=== PATIENT | female | born 1980 | race Two or more races ===

== ENCOUNTER 2017-01-18 08:31 | Emergency (ER) | payer MEDICARE ==
[2017-01-18] MEDS ORDERED: OXYCODONE-ACETAMINOPHEN 5-325 MG TABLET PO ONE (09:41)
[2017-01-18] MEDS ORDERED: ONDANSETRON 4 MG TAB.RAPDIS SL ONE (09:41)
--- NOTE | 2017-01-18 09:41 | ER Document Report ---
ED Medical Screen (RME) - General Chief Complaint: Abdominal Pain Stated Complaint: SHARP PAIN ON RIGHT SIDE OF TORSO Time Seen by Provider: 01/18/17 09:37 Mode of Arrival: Ambulatory Information source: Patient TRAVEL OUTSIDE OF THE [place] IN LAST 30 DAYS: No - HPI Patient complains to provider of: Right-sided chest pain Onset: Yesterday Onset/Duration: Sudden Quality of pain: Sharp, Stabbing Severity: Moderate Associated Symptoms: Hurts to breath, Nausea Exacerbated by: Deep breathing Relieved by: Denies Similar symptoms previously: No Recently seen / treated by doctor: No Notes: 01/18/17 09:41 It is a 36-year-old female with a reported history of CVA and AL who presents to the emergency room complaining of right-sided chest pain that started yesterday evening, starts near the right upper quadrant of the abdomen and radiates up into the chest, it hurts to take a deep breath, it is associated with nausea and shortness of breath - Related Data Allergies/Adverse Reactions: No Known Allergies Allergy (Verified 01/18/17 08:41) Past Medical History - Past Medical History Cardiac Medical History: Reports: Hx Heart Attack, Hx Hypertension - PT ON BLOOD PRESSURE MEDS Pulmonary Medical History: Reports: Hx Asthma Neurological Medical History: Reports: Hx Cerebrovascular Accident Renal/ Medical History: Denies: Hx Peritoneal Dialysis - Immunizations Hx Diphtheria, Pertussis, Tetanus Vaccination: Yes Physical Exam - Vital signs Vitals: Temp Pulse Resp BP Pulse Ox 98.3 F 72 18 124/73 99 01/18/17 08:42 01/18/17 08:42 01/18/17 08:42 01/18/17 08:42 01/18/17 08:42 Course - Vital Signs Vital signs: Temp Pulse Resp BP Pulse Ox 98.3 F 72 18 124/73 99 01/18/17 08:42 01/18/17 08:42 01/18/17 08:42 01/18/17 08:42 01/18/17 08:42
--- NOTE | 2017-01-18 10:45 | RADIOLOGY REPORT (SQ) ---
EXAM DESCRIPTION: CHEST PA/LAT COMPLETED DATE/TIME: 01/18/2017 10:02 am REASON FOR STUDY: right sided cp COMPARISON: September 2015 EXAM PARAMETERS: NUMBER OF VIEWS: two views TECHNIQUE: Digital Frontal and Lateral radiographic views of the chest acquired. RADIATION DOSE: NA LIMITATIONS: none FINDINGS: LUNGS AND PLEURA: No opacities, masses or pneumothorax. No pleural effusion. MEDIASTINUM AND HILAR STRUCTURES: No masses or contour abnormalities. HEART AND VASCULAR STRUCTURES: Heart normal size. No evidence for failure. BONES: No acute findings. HARDWARE: None in the chest. OTHER: No other significant finding. IMPRESSION: NO SIGNIFICANT RADIOGRAPHIC FINDING IN THE CHEST. TECHNICAL DOCUMENTATION: JOB ID: [id number] [employer] All Rights Reserved
[2017-01-18 10:49] LABS: ABSOLUTE EOSINOPHILS # (AUTO) 0.1 10^3/uL (0.0-0.6); ABSOLUTE LYMPHOCYTES (AUTO) 1.8 10^3/uL (0.5-4.7); ABSOLUTE MONOCYTES (AUTO) 0.5 10^3/uL (0.1-1.4); ABSOLUTE NEUT (AUTO) 4.7 10^3/uL (1.7-8.2); BASOPHILS % (AUTO) 0.7 % (0-2); HEMATOCRIT 46.2 % (36.0-47.0); HEMOGLOBIN 15.6 g/dL (12.0-15.5); HGB HCT DIFFERENCE 0.6; LYMPHOCYTES % (AUTO) 24.6 % (13-45); MEAN CORPUSCULAR HEMOGLOBIN 31.4 pg (27.0-33.4); MEAN CORPUSCULAR HGB CONC 33.9 g/dL (32.0-36.0); MEAN CORPUSCULAR VOLUME 93 fl (80-97); MONOCYTES % (AUTO) 7.1 % (3-13); RED BLOOD COUNT 4.98 10^6/uL (3.72-5.28); RED CELL DISTRIBUTION WIDTH 13.4 % (11.5-14.0); SEGMENTED NEUTROPHILS % (AUTO) 65.6 % (42-78); WHITE BLOOD COUNT 7.1 10^3/uL (4.0-10.5)
[2017-01-18 11:18] LABS: ALANINE AMINOTRANSFERASE 20 U/L (9-52); ALKALINE PHOSPHATASE 86 U/L (38-126); ANION GAP 11 (5-19); ASPARTATE AMINO TRANSFERASE 16 U/L (14-36); BILIRUBIN,DIRECT 0.4 mg/dL (0.0-0.4); BILIRUBIN,TOTAL 0.7 mg/dL (0.2-1.3); BLOOD UREA NITROGEN 14 mg/dL (7-20); CALCIUM 9.3 mg/dL (8.4-10.2); CARBON DIOXIDE 21 mmol/L (22-30); CHLORIDE 108 mmol/L (98-107); CREATINE KINASE 104 U/L (30-135); GLUCOSE 99 mg/dL (75-110); LIPASE 73.1 U/L (23-300); POTASSIUM 4.3 mmol/L (3.6-5.0); TOTAL PROTEIN 6.8 g/dL (6.3-8.2)
[2017-01-18 11:24] LABS: CREATINE KINASE MB 0.86 ng/mL (<4.55)
--- NOTE | 2017-01-18 11:30 | ER Document Report ---
ED General - General Chief Complaint: Abdominal Pain Stated Complaint: SHARP PAIN ON RIGHT SIDE OF TORSO Time Seen by Provider: 01/18/17 09:37 Mode of Arrival: Ambulatory Information source: Patient Notes: 36-year-old female history of CVA 2 [place] 1 presents with complaints of right flank pain and right upper abdominal pain. Patient notes pain started yesterday radiates up the side. Patient notes when this pain occurs she feels her heart racing and pounding. Patient denies any actual chest pain even though this has been documented. Patient notes it hurts when she moves around and when she takes a deep breath but that the pain is all limited to the right upper quadrant and flank. Patient denies any urinary complaints denies any fevers admits to nausea. Patient states this does not feel like a previous [place] TRAVEL OUTSIDE OF THE [place] IN LAST 30 DAYS: No - HPI Onset/Duration: Sudden Quality of pain: Sharp Severity: Mild Pain Level: 1 Associated symptoms: Nausea, Vomiting Exacerbated by: Movement, Deep breathing Relieved by: Denies Similar symptoms previously: No Recently seen / treated by doctor: No - Related Data Allergies/Adverse Reactions: No Known Allergies Allergy (Verified 01/18/17 08:41) Past Medical History - General Information source: Patient - Social History Smoking Status: Never Smoker Cigarette use (# per day): No Chew tobacco use (# tins/day): No Smoking Education Provided: No Family History: Reviewed & Not Pertinent Patient has suicidal ideation: No Patient has homicidal ideation: No - Past Medical History Cardiac Medical History: Reports: Hx Heart Attack, Hx Hypertension - PT ON BLOOD PRESSURE MEDS Pulmonary Medical History: Reports: Hx Asthma Neurological Medical History: Reports: Hx Cerebrovascular Accident Renal/ Medical History: Denies: Hx Kidney Stones, Hx Peritoneal Dialysis - Immunizations Hx Diphtheria, Pertussis, Tetanus Vaccination: Yes Review of Systems - Review of Systems Notes: PHYSICAL EXAMINATION: GENERAL: Well-appearing, well-nourished and in no acute distress. HEAD: Atraumatic, normocephalic. EYES: Pupils equal round and reactive to light, extraocular movements intact, conjunctiva are normal. ENT: Nares patent, oropharynx clear without exudates. Moist mucous membranes. NECK: Normal range of motion, supple without lymphadenopathy LUNGS: Breath sounds clear to auscultation bilaterally and equal. No wheezes rales or rhonchi. HEART: Regular rate and rhythm without murmurs ABDOMEN: Soft, tender in the right upper quadrant right CVA Female : deferred Musculoskeletal: Normal range of motion, no pitting or edema. No cyanosis. NEUROLOGICAL: Cranial nerves grossly intact. Normal speech, normal gait. Normal sensory, motor exams PSYCH: Normal mood, normal affect. SKIN: Warm, Dry, normal turgor, no rashes or lesions noted. Physical Exam - Vital signs Vitals: Temp Pulse Resp BP Pulse Ox 98.3 F 72 18 124/73 99 01/18/17 08:41 01/18/17 08:41 01/18/17 08:41 01/18/17 08:41 01/18/17 08:41 Course - Re-evaluation Re-evalutation: 01/18/17 11:29 This does not appear to be cardiac in nature at all, there is no lung involvement. The pain seems specific in the right flank and right upper quadrant. My concern is for kidney versus gallbladder however cardiac enzymes have been ordered given her history. 01/18/17 14:22 Ultrasound noted no significant abnormality, patient is in no distress. D- dimer was negative chest x-ray was normal cardiac enzymes were negative patient otherwise looks well is stable I will discharge home After performing a Medical Screening Examination, I estimate there is LOW risk for RUPTURED ESOPHAGUS, PNEUMOTHORAX, PULMONARY EMBOLISM, ACUTE CORONARY SYNDROME, OR THORACIC AORTIC DISSECTION, thus I consider the discharge disposition reasonable. I have reevaluated this patient multiple times and no significant life threatening changes are noted. The patient and I have discussed the diagnosis and risks, and we agree with discharging home with close follow-up. We also discussed returning to the Emergency Department immediately if new or worsening symptoms occur. We have discussed the symptoms which are most concerning (e.g., bloody sputum, worsening pain or shortness of breath) that necessitate immediate return. - Vital Signs Vital signs: Temp Pulse Resp BP Pulse Ox 98.3 F 72 18 124/73 99 01/18/17 08:42 01/18/17 08:42 01/18/17 08:42 01/18/17 08:42 01/18/17 08:42 - Laboratory Result Diagrams: 01/18/17 10:21 01/18/17 10:21 Laboratory results interpreted by me: 01/18/17 01/18/17 01/18/17 09:50 10:21 10:21 Hgb 15.6 H Chloride 108 H Carbon Dioxide 21 L Urine Protein 30 H Urine Ketones TRACE H - Diagnostic Test Radiology reviewed: Image reviewed, Reports reviewed - EKG Interpretation by Me EKG shows normal: Sinus rhythm, [place], Intervals, QRS Complexes Discharge - Discharge Clinical Impression: Right upper quadrant abdominal pain Condition: Stable Disposition: HOME, SELF-CARE Instructions: Abdominal Pain ([facility]), Chest Pain of Unclear Cause ([facility]) Additional Instructions: Follow up with your physician tomorrow for further care or return to the ED IMMEDIATELY if symptoms worsen or new concerns occur. If you cannot afford to follow up with your primary care physician a list of low cost clinics have been provided at the end of your discharge papers as well. Prescriptions: Oxycodone HCl/Acetaminophen [Percocet 5-325 mg Tablet] 1 tab PO ASDIR PRN #15 tab PRN Reason:
[2017-01-18 11:32] LABS: TROPONIN I < 0.012 ng/mL
[2017-01-18 11:38] LABS: APPEARANCE,URINE CLOUDY; BILIRUBIN,URINE NEGATIVE (NEGATIVE); GLUCOSE, URINE NEGATIVE (NEGATIVE); KETONES,URINE TRACE mg/dL (NEGATIVE); LEUKOCYTE ESTERASE,URINE NEGATIVE (NEGATIVE); NITRITE,URINE NEGATIVE (NEGATIVE); PROTEIN,URINE 30 mg/dL (NEGATIVE); URINE SPECIFIC GRAVITY 1.033; UROBILINOGEN,URINE NEGATIVE mg/dL (<2.0)
[2017-01-18] MEDS ORDERED: HYDROCODONE/ACETAMINOPHEN 5-325 MG TABLET PO ONE (13:05)
--- NOTE | 2017-01-18 14:09 | RADIOLOGY REPORT (SQ) ---
EXAM DESCRIPTION: U/S ABDOMEN LIMITED W/O DOP COMPLETED DATE/TIME: 01/18/2017 1:51 pm REASON FOR STUDY: ruq pain COMPARISON: None. TECHNIQUE: Dynamic and static grayscale images acquired of the abdomen and recorded on PACS. Additio nal selected color Doppler and spectral images recorded. LIMITATIONS: None. FINDINGS: PANCREAS: No masses. Visualized pancreatic duct normal caliber. LIVER: 15.8 cm. Normal echotexture. LIVER VASCULATURE: Normal directional flow of the main portal vein and hepatic veins. GALLBLADDER: No stones. Normal wall thickness. No pericholecystic fluid. ULTRASOUND-DETECTED GAMA'S SIGN: Negative. INTRAHEPATIC DUCTS AND COMMON DUCT: Common bile duct is normal at 4 mm. INFERIOR VENA CAVA: Normal flow. AORTA: No aneurysm. RIGHT KIDNEY: Normal size, 9.4 cm. Normal echogenicity. No masses. No calcifications. No hydrone phrosis. PERITONEAL AND RIGHT PLEURAL SPACE: No ascites or effusions. OTHER: No other significant findings. IMPRESSION: NORMAL RIGHT UPPER QUADRANT ULTRASOUND. TECHNICAL DOCUMENTATION: JOB ID: [id number] [employer]- All Rights Reserved
[2017-01-18 15:30] VITALS: BP 106/61
--- NOTE | 2017-01-18 20:33 | EKG REPORT ---
SEVERITY:- NORMAL ECG - SINUS RHYTHM : Confirmed by: Jone Yanes MD 18-Jan-2017 20:32:29
== END 2017-01-18 15:30 | disposition home or self-care (01) ==
LOC: ER 08:31
DX: R10.11 Right upper quadrant pain (principal)
CPT/HCPCS: 93005; 99284; 36415; 82553; 82550; 83690; 84703; 85025; 80053; 81001; 84484; 85379; 71020; 76705; 93010; A9270 ×3; S0119

== ENCOUNTER 2017-04-02 19:29 | Observation (INO) | payer MEDICARE ==
--- NOTE | 2017-04-02 20:14 | ER Document Report ---
ED Medical Screen (RME) - General Chief Complaint: Chest Pain Stated Complaint: CHEST PAIN Time Seen by Provider: 04/02/17 20:11 Notes: Patient states that approximately 1 hour before arrival she developed the sudden onset of right-sided pain and numbness in her right arm as well as chest heaviness. She states that in the past she has had a heart attack and 2 strokes. She states the strokes left her with some memory trouble as well as some depth perception problems. A friend who accompanies the patient to the emergency department says that she noticed that the patient's smile seem to be corrected but now seems to be better. TRAVEL OUTSIDE OF THE [place] IN LAST 30 DAYS: No - Related Data Allergies/Adverse Reactions: No Known Allergies Allergy (Verified 01/18/17 08:41) Past Medical History - Past Medical History Cardiac Medical History: Reports: Hx Heart Attack, Hx Hypertension - PT ON BLOOD PRESSURE MEDS Pulmonary Medical History: Reports: Hx Asthma Neurological Medical History: Reports: Hx Cerebrovascular Accident Renal/ Medical History: Denies: Hx Kidney Stones, Hx Peritoneal Dialysis - Immunizations Hx Diphtheria, Pertussis, Tetanus Vaccination: Yes Physical Exam - Vital signs Vitals: Temp Pulse Resp BP Pulse Ox 98.7 F 65 16 132/82 H 99 04/02/17 19:42 04/02/17 19:42 04/02/17 19:42 04/02/17 19:42 04/02/17 19:42 Course - Vital Signs Vital signs: Temp Pulse Resp BP Pulse Ox 98.7 F 65 16 132/82 H 99 04/02/17 19:42 04/02/17 19:42 04/02/17 19:42 04/02/17 19:42 04/02/17 19:42
--- NOTE | 2017-04-02 20:32 | RADIOLOGY REPORT (SQ) ---
EXAM DESCRIPTION: CT HEAD WITHOUT COMPLETED DATE/TIME: 04/02/2017 8:23 pm REASON FOR STUDY: right sided numbness COMPARISON: None. TECHNIQUE: Axial images acquired through the brain without intravenous contrast. Images reviewed wi th bone, brain and subdural windows. Images stored on PACS. All CT scanners at this facility use dose modulation, iterative reconstruction, and/or weight based d osing when appropriate to reduce radiation dose to as low as reasonably achievable (ALARA). [facility]: Dose Right [facility]: CareDose [facility]: Dose Right [facility]: Teradose 4D [facility]: [employer] RADIATION DOSE: Up-to-date CT equipment and radiation dose reduction techniques were employed. CTDIv ol: 64.6 mGy. DLP: 1163 mGy-cm. mGy. LIMITATIONS: None. FINDINGS: VENTRICLES: Prominent. CEREBRUM: No masses. No hemorrhage. No midline shift. Areas of low density in the white matter mos t likely due to chronic micro-vascular ischemic change. No evidence for acute infarction. CEREBELLUM: No masses. No hemorrhage. No alteration of density. No evidence for acute infarction. EXTRAAXIAL SPACES: Mild age-related involutional change. No fluid collections. No masses. ORBITS AND GLOBE: No intra- or extraconal masses. Normal contour of globe without masses. CALVARIUM: No fracture. PARANASAL SINUSES: No fluid or mucosal thickening. SOFT TISSUES: No mass or hematoma. OTHER: No other significant finding. IMPRESSION: MILD CHRONIC CHANGES OF ATROPHY AND MICROVASCULAR ISCHEMIA. NO ACUTE PROCESS. COMMENT: Pertinent positive or negative findings of the imaging study reported as a CRITICAL EXAM rex ASH MD at20:23 on 04/02/2017. Category of Critical Exam: Stroke protocol. TECHNICAL DOCUMENTATION: JOB ID: [id number] Quality ID # [id number]: Final reports with documentation of one or more dose reduction techniques (e.g., Au tomated exposure control, adjustment of the mA and/or kV according to patient size, use of iterative reconstruction technique) 2010 [employer]- All Rights Reserved
--- NOTE | 2017-04-02 20:33 | RADIOLOGY REPORT (SQ) ---
EXAM DESCRIPTION: CHEST SINGLE VIEW COMPLETED DATE/TIME: 04/02/2017 8:24 pm REASON FOR STUDY: right sided numbness COMPARISON: 01/18/2017 EXAM PARAMETERS: NUMBER OF VIEWS: One view. TECHNIQUE: Single frontal radiographic view of the chest acquired. RADIATION DOSE: NA LIMITATIONS: None. FINDINGS: LUNGS AND PLEURA: No opacities, masses or pneumothorax. No pleural effusion. MEDIASTINUM AND HILAR STRUCTURES: No masses. Contour normal. HEART AND VASCULAR STRUCTURES: Heart normal in size. Normal vasculature. BONES: No acute findings. HARDWARE: None in the chest. OTHER: No other significant finding. IMPRESSION: NO ACUTE RADIOGRAPHIC FINDING IN THE CHEST. TECHNICAL DOCUMENTATION: JOB ID: [id number]
--- NOTE | 2017-04-02 20:43 | ER Document Report ---
ED General - General Mode of Arrival: Ambulatory Information source: Patient TRAVEL OUTSIDE OF THE [place] IN LAST 30 DAYS: No <OPAL ODOM - Last Filed: 04/03/17 01:32> <CYNDEEMARISSAMICHELLE - Last Filed: 04/08/17 12:18> - General Chief Complaint: S/S of Possible Stroke Stated Complaint: CHEST PAIN Time Seen by Provider: 04/02/17 20:11 Notes: Patient is a 36 year old female presenting to the ED right sided numbness and pain in her chest. Patient's symptoms were onset about 1 hour prior to arrival. Patient states her pain is numb and heavy. Patient also has a headache that was onset at the same time. Patient denies any dyspnea or other symptoms. Patient has a history of cardiac arrest with CVA in 2006. Patient was flown to [facility] for this. Family state the patient has a slight crooked smile but it was more crooked at home; patient also had some hesitancy when speaking due to the previous stroke. Patient is able to ambulate without help. Patient was given 4 baby ASA at home prior to arrival. Patient denies any recent fall. Patient is not on any blood thinners. Patient does not have any known allergies. PCP: nasrin James's office perhaps [place]. (OPAL ODOM) - Related Data Allergies/Adverse Reactions: No Known Allergies Allergy (Verified 01/18/17 08:41) Past Medical History - General Information source: Patient, Relative - Social History Smoking Status: Current Every Day Smoker Chew tobacco use (# tins/day): No Frequency of alcohol use: Occasional Drug Abuse: None Family History: None Patient has suicidal ideation: No Patient has homicidal ideation: No - Past Medical History Cardiac Medical History: Reports: Hx Heart Attack, Hx Hypertension - PT ON BLOOD PRESSURE MEDS Pulmonary Medical History: Reports: Hx Asthma Neurological Medical History: Reports: Hx Cerebrovascular Accident Surgical Hx: Negative - Immunizations Hx Diphtheria, Pertussis, Tetanus Vaccination: Yes <OPAL ODOM - Last Filed: 04/03/17 01:32> Review of Systems - Review of Systems Constitutional: No symptoms reported EENT: No symptoms reported Cardiovascular: See HPI, Chest pain Respiratory: No symptoms reported Gastrointestinal: No symptoms reported Genitourinary: No symptoms reported Female Genitourinary: No symptoms reported Musculoskeletal: No symptoms reported Skin: No symptoms reported Hematologic/Lymphatic: No symptoms reported Neurological/Psychological: See HPI, Headaches, Numbness -: Yes All other systems reviewed and negative <OPAL ODOM - Last Filed: 04/03/17 01:32> Physical Exam - Vital signs Interpretation: Normal <OPAL ODOM - Last Filed: 04/03/17 01:32> <MICHELLE COTTER - Last Filed: 04/08/17 12:18> - Vital signs Vitals: Temp Pulse Resp BP Pulse Ox 98.7 F 65 16 132/82 H 99 04/02/17 19:42 04/02/17 19:42 04/02/17 19:42 04/02/17 19:42 04/02/17 19:42 - Notes Notes: GENERAL: Alert, interacts well. Mild distress. HEAD: Normocephalic, atraumatic. EYES: Appear normal. Pupils equal, round, and reactive to light. ENT: Moist mucus membranes, tongue midline. NECK: Full range of motion. Supple. Trachea midline. LUNGS: Clear to auscultation bilaterally, no wheezes, rales, or rhonchi. No respiratory distress. HEART: Regular rate and rhythm. No murmurs, gallops, or rubs. ABDOMEN: Soft, non-tender. Non-distended. Normal bowel sounds. EXTREMITIES: Moves all 4 extremities spontaneously. No edema. 2 out of 4 strength in the right upper extremity compared to the left upper extremity. Sensation intact. No lower extremity weakness. Normal reflexes throughout. NEUROLOGICAL: Alert and oriented x3. Normal speech. No focal neurological deficits. No obvious facial droop. GSC 15. PSYCH: Normal affect, normal mood. SKIN: Warm, dry, normal turgor. No rashes or lesions noted. (OPAL ODOM) Course - Laboratory Result Diagrams: 04/02/17 20:50 04/02/17 20:50 - Consults [facility] Time consulted: 21:00 Dr. Hewitt Time consulted: 21:33 Consulted provider: will see as inpatient <OPAL ODOM - Last Filed: 04/03/17 01:32> - Laboratory Result Diagrams: 04/02/17 20:50 04/03/17 03:31 <CYNDEEMICHELLE - Last Filed: 04/08/17 12:18> - Re-evaluation Re-evalutation: 04/02/17 20:43 Patient presents emergency department via the triage area and is immediately call the stroke protocol and sent to CT. Patient states about an hour prior to arrival she developed acute onset of mild headache right chest heaviness numbness in the right chest numbness in the right arm felt like she could not lift her right arm. Sister is at the bedside who is with her most of the time. She has a history of a massive CVA as well as OR in 2006 where she was life flighted to [facility]. As a result of that she never received any stents and is never had any known blockages or any stents placed and is not on Plavix. She has a local primary care physician and is supposed to take aspirin on a daily basis and that is according to the family her only medication. As a result of her previous CVAs in the past and she occasionally has some speech impediment some problems with depth perception but normally ambulates without assistive devices. There is no recent history of fall. Sister who was witnessed to this prior to arrival is 1 of our security officers. She said that she gave her 4 baby aspirin and brought her directly to the emergency department. On examination the patient's blood pressure is 132/82 she is awake alert with a GCS of 15. She has no obvious facial droop but has decreased sensation on the right side of her face compared to the left. She has 2 out of 4 strength in the right upper extremity compared to left lower extremity with no decreased sensation. The IV is being placed in the right hand and she can feel that appropriately. Heart lungs abdomen examined with no acute findings she has no lower extremity weakness reflexes are symmetrical throughout. 04/02/17 21:03 CT examination of the head does not show any acute pathology but rather chronic microvascular disease. Patient is reassessed at the bedside at this point she has a very subtle left-sided facial droop but 4 out of 4 strength in the right upper extremity is not complaining of headache shortness breath or chest pain. At this point I contacted [facility] in [place] to speak with the neurologist at 2102 and am waiting a callback. Initial NIH stroke scale of 2 now currently a 1. 04/02/17 21:[address] Evans neurology at [facility] that did not recommend transfer nor thrombolytics at this point because the only remaining deficit is a slight facial droop.. Discussed was with the family they do not want thrombolytics. The rest of her laboratory evaluation is back EKG chest x-ray cardiac enzymes are stable no electrolyte abnormalities. At this point patient will be to admitted to the hospital for further assessment and evaluation 04/02/17 21:50 I have spoken with Dr. Hewitt who agrees to admit the patient to IMCU observation. (MICHELLE COTTER) - Vital Signs Vital signs: Temp Pulse Resp BP Pulse Ox 97.8 F 72 12 111/59 L 98 04/04/17 09:23 04/04/17 09:23 04/04/17 09:23 04/04/17 09:23 04/04/17 09:23 - Laboratory Laboratory results interpreted by me: 04/02/17 20:50 Chloride 108 H Carbon Dioxide 21 L - EKG Interpretation by Me Additional EKG results interpreted by me: 04/02/17 20:46 EKG shows sinus rhythm at 73 bpm with no acute ST segment elevation or depression as compared to previous EKG from 01/18/2017 (MICHELLE COTTER) - Consults [facility] Transfer [facility] Reason for consultation: 04/02/17 21:00 Contacted [facility] to speak with a neurologist to discuss patient. They will call back. 04/02/17 21:[address] Evans who states the patient is not a candidate for TPA and does not need to be transferred at this time. (OPAL ODOM) Dr. Hewitt Reason for consultation: 04/02/17 21:[address] Hewitt for admission, he will call back. 04/02/17 21:[address] Hewitt; he will admit the patient. (OPAL ODOM) Critical Care Note - Critical Care Note Total time excluding time spent on procedures (mins): 55 <MICHELLE COTTER - Last Filed: 04/08/17 12:18> Discharge <OPAL ODOM - Last Filed: 04/03/17 01:32> - Discharge Admitting Provider: Hospitalist Unit Admitted: IMCU <MICHELLE COTTER - Last Filed: 04/08/17 12:18> - Discharge Clinical Impression: CVA (cerebral vascular accident) Qualifiers: CVA mechanism: unspecified Qualified Code(s): I63.9 - Cerebral infarction, unspecified Condition: Stable Disposition: ADMITTED INPATIENT Scribe Attestation: 04/02/17 21:51 I personally performed the services described in the documentation reviewed the documentation recorded by my scribe in my presence and it accurately and completely records my words and actions (MICHELLE COTTER) ED NIH Stroke Scale - NIH Stroke Scale When completed:: Protocol *: 1. NIH scale should be completed with appropriate accompanying assessment tools. *: 2. The NIH should reflect what the patient is capable of doing and should not be coached by the clinician. 1a. Level of Consciousness: 0=Alert;keenly responsive -: 1=Drowsy -: 2=Obtunded -: 3=Coma/unresponsive or reflex to noxious stimuli. 1a. Responses: 0 1b. Orientation Questions: a. What month is it? -: b. How old are you? -: 0=Answers both questions correctly. -: 1=Answers one question correctly or patient is intubated or has orotracheal trauma. -: 2=Answers neither question correctly. 1b. Responses: 1 1c. Response to commands: a. Open and close eyes? -: b. Want Ad Clerk and release hand? -: Credit is given despite weakness. Demonstration of task is permitted. Substitute command if hands cannot be used. -: 0=Performs both tasks correctly -: 1=Performs one task correctly -: 2=Performs neither task correctly 1c. Responses: 0 2. Gaze: Establish eye contact and instruct patient to "Follow my finger" -: 0=Normal -: 1=Partial gaze palsy. Gaze is abnormal in one or both eyes, but where forced deviation or total gaze paresis is not present. -: 2=Forced deviation or total gaze paresis. 2. Responses: 0 3. Visual Wilson: Sees fingers in all four quadrants. -: 0=No visual loss. -: 1=Partial hemianopsia. -: 2=Complete hemianopsia. -: 3=Bilateral hemianopsia (including Cortical blindness) 3. Responses: 0 4. Facial Movement: Instruct patient to: -: a. Show me your teeth -: b. Raise your eyebrows -: c. Close your eyes -: d. Smile -: 0=Normal symmetrical movement -: 1=Minor paralysis (flattened nasolabial fold, asymmetry on smiling). -: 2=Partial paralysis (total or near total paralysis of lower face). -: 3=Complete paralysis of upper and lower face 4. Responses: 1 5. Motor functions (left arm): Alternate sides and extend each arm with palms down (90 degrees if sitting or 45 degrees for supine). -: 0=No drift;limb holds for full 10 seconds. -: 1=Drift; limb holds but drifts down before full 10 seconds, but does not hit bed. -: 2=Some effort against gravity; limb cannot get to or maintain position. -: 3=No effort against gravity; limb falls. -: 4=No movement. -: UN=Amputation, joint fusion, explain in comments. 5. Responses (left arm): 0 5. Motor Functions (right arm): Alternate sides and extend each arm with palms down (90 degrees if sitting or 45 degrees for supine). -: 0=No drift;limb holds for full 10 seconds. -: 1=Drift; limb holds but drifts down before full 10 seconds, but does not hit bed. -: 2=Some effort against gravity; limb cannot get to or maintain position. -: 3=No effort against gravity; limb falls. -: 4=No movement. -: UN=Amputation, joint fusion, explain in comments. 5. Responses (right arm): 0 6. Motor Functions (left leg): With patient lying supine, alternate sides and extend each leg (30 degrees always while supine). -: 0=No drift, leg holds position for full 5 seconds -: 1=Drift; leg falls before full 5 seconds but does not hit bed. -: 2=Some effort against gravity, leg falls to bed but some effort against gravity. -: 3=No effort against gravity, leg falls to bed immediately. -: 4=No movement. -: UN=Amputation, joint fusion; explain in comments. 6. Responses (left leg): 0 6. Motor Functions (right leg): With patient lying supine, alternate sides and extend each leg (30 degrees always while supine). -: 0=No drift, leg holds position for full 5 seconds -: 1=Drift; leg falls before full 5 seconds but does not hit bed. -: 2=Some effort against gravity, leg falls to bed but some effort against gravity. -: 3=No effort against gravity, leg falls to bed immediately. -: 4=No movement. -: UN=Amputation, joint fusion; explain in comments. 6. Responses (right leg): 0 7. Limb Ataxia: With eyes open instruct patient to: -: a. "Touch your finger to your nose". -: b. "Touch your heel to your duval" -: 0=Absent -: 1=Present in one limb. -: 2=Present in two limbs. -: UN=Amputation or joint fusion; explain in comments. 7. Responses: 0 8. Sensory: Test sensation using pinprick or noxious stimuli. Test as many body parts as possible. -: 0=Normal;no sensory loss -: 1=Mile to moderate sensory loss (patient feels pin prick but is less sharp on affected side). -: 2=Severe or total sensory loss. 8. Responses: 0 9. Best Language: Instruct patient to: -: a. "Describe what you see in this picture." -: b. "Name the items in this picture." -: c. "Read these sentences." -: 0=No aphasia, normal -: 1=Mild to moderate aphasia. -: 2=Severe aphasia -: 3=Mute, global aphasia, no usable speech or auditory comprehension. 9. Responses: 0 10. Articulation, Dysarthia: Instruct patient to: -: "Read these words" or "Repeat these words" -: 0=Normal -: 1=Mild to moderate; patient may slur some words but can be understood without difficulty. -: 2=Severe; patients speech so slurred as to be unintelligible in the absence of dysphasia. -: UN=Intubated or other physical barrier, explain in comments. 10. Responses: 0 11. Extinction or inattention: 0=No abnormality -: 1= Visual, tactile, auditory, spatial, or personal inattention or extinction to bilateral simulation in one or the sensory modalities. -: 2=Profound beau-inattention or beau-inattention to more than one modality; does not recognize own hand. 11. Responses: 0 Total Score: 2 <OPAL ODOM - Last Filed: 04/03/17 01:32> Scribe Documentation - Scribe Written by Scribe:: Richar Ann 04/02/17 21:42 acting as scribe for Dr.:: Cyndee <OPAL ODOM - Last Filed: 04/03/17 01:32>
[2017-04-02 21:07] LABS: ABSOLUTE EOSINOPHILS # (AUTO) 0.2 10^3/uL (0.0-0.6); ABSOLUTE MONOCYTES (AUTO) 0.8 10^3/uL (0.1-1.4); ABSOLUTE NEUT (AUTO) 5.6 10^3/uL (1.7-8.2); BASOPHILS % (AUTO) 0.3 % (0-2); EOSINOPHILS % (AUTO) 2.1 % (0-6); HEMATOCRIT 44.9 % (36.0-47.0); HGB HCT DIFFERENCE 0.1; MEAN CORPUSCULAR HEMOGLOBIN 31.3 pg (27.0-33.4); MEAN CORPUSCULAR HGB CONC 33.5 g/dL (32.0-36.0); MEAN CORPUSCULAR VOLUME 93 fl (80-97); MONOCYTES % (AUTO) 8.2 % (3-13); RED BLOOD COUNT 4.81 10^6/uL (3.72-5.28); RED CELL DISTRIBUTION WIDTH 13.8 % (11.5-14.0); SEGMENTED NEUTROPHILS % (AUTO) 58.4 % (42-78); WHITE BLOOD COUNT 9.5 10^3/uL (4.0-10.5)
[2017-04-02 21:08] LABS: PROTHROMBIN TIME 12.8 SEC (11.4-15.4)
[2017-04-02 21:09] LABS: PARTIAL THROMBOPLASTIN TIME 30.3 SEC (23.5-35.8)
[2017-04-02 21:25] LABS: ALANINE AMINOTRANSFERASE 20 U/L (9-52); ALBUMIN 3.9 g/dL (3.5-5.0); ALKALINE PHOSPHATASE 82 U/L (38-126); ANION GAP 11 (5-19); ASPARTATE AMINO TRANSFERASE 17 U/L (14-36); BILIRUBIN,DIRECT 0.4 mg/dL (0.0-0.4); BILIRUBIN,TOTAL 0.4 mg/dL (0.2-1.3); BLOOD UREA NITROGEN 15 mg/dL (7-20); CALCIUM 9.2 mg/dL (8.4-10.2); CARBON DIOXIDE 21 mmol/L (22-30); CHLORIDE 108 mmol/L (98-107); CREATINE KINASE 78 U/L (30-135); CREATININE RESULT 0.83 mg/dL (0.52-1.25); GLUCOSE 100 mg/dL (75-110); POTASSIUM 3.9 mmol/L (3.6-5.0); SODIUM 139.7 mmol/L (137-145); TOTAL PROTEIN 6.7 g/dL (6.3-8.2)
[2017-04-02 21:37] LABS: CREATINE KINASE MB 0.62 ng/mL (<4.55); TROPONIN I < 0.012 ng/mL
[2017-04-02] MEDS ORDERED: HYDROCODONE/ACETAMINOPHEN 5-325 MG TABLET PO ONE (21:50)
[2017-04-03] MEDS ORDERED: POTASSI CL 20 MEQ/D5NS 1L 20 MEQ/1,000 ML RTUINJ IV PRN (03:14)
[2017-04-03] MEDS ORDERED: MAGNESIUM HYDROXIDE SUSP 30 ML UDCUP PO PRN (03:25)
[2017-04-03] MEDS ORDERED: PROMETHAZINE HCL 25 MG TABLET PO PRN (03:33)
--- NOTE | 2017-04-03 03:45 | PDOC H&P ---
History of Present Illness Admission Date/PCP: 04/02/17 22:05 PCP uncertain Patient complains of: Strokelike symptoms, right-sided chest pain History of Present Illness: ALETHEA GARRETT is a 36 year old female, status post 2 "severe" strokes in 2006, with a concomitant myocardial infarction with the first stroke , who presents to the emergency room for evaluation of above complaints. Patient has been discussed with emergency room physician who evaluated the patient. Patient has mild expressive dysphasia, in terms of slight residual difficulty expressing her thoughts at times, due to her prior strokes, so history is a bit difficult at times. As best I can determine, she has very mild residual primarily right upper extremity weakness and occasional paresthesias since her 2 prior strokes. Approximately an hour prior to presentation to our emergency room, the weakness and paresthesias increased fairly significantly, along with mild headache and right-sided chest discomfort. Symptoms improved significantly in the emergency room, and patient was not felt to be a TPA candidate. She still states she has some mild residual numbness and "heaviness" of her right upper extremity, along with mild right sided chest discomfort. No symptomatic involvement of the right lower extremity. Mild nausea but no vomiting. No fever or chills, diarrhea or dysuria, or abdominal pain. No history of seizure. Dictation via voice recognition software. Laboratory results are listed in [facility] and are reviewed. X-ray summary results are listed below, with full report(s) reviewed. . EKG reviewed and compared to prior tracing from January 18 of this year.. Social history/personal habits: . 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 Pack of cigarettes will last her a week. "Social" alcohol intake; could not be any more specific than this. No illicit drug use. No known drug allergies. Home medications consist only of 81 mg of aspirin a day. REVIEW OF SYSTEMS: Constitutional: No fever or chills. Eyes: Wears glasses. ENT: No swallowing problems or complaints. Denies hearing loss. Pulmonary: No current complaints. Cardiovascular: See history and present illness. Gastrointestinal: See history and present illness. Skin: No current complaints, including rashes. Hematologic: Easy bruising. Neurologic: See history and present illness. Musculoskeletal: No current or chronic joint complaints, such as arthritis. Psychiatric: Denies anxiety or depression. Endocrine: No current complaints, including polyuria. Genitourinary: No current complaints, including dysuria. PHYSICAL EXAMINATION: 5 feet 9 inches tall. 66.5 kg. BMI 21.6 kg/m.Temperature 97.9. Pulse 63 and regular. Blood pressure 111/59. Respirations are 16 and unlabored. 96% saturation on room air. Well-nourished well-developed female appearing approximately her stated age. Pleasant awake alert and cooperative. Somewhat anxious, although no jose agitation. Female floor nurse Idalia is present. Skin is warm and dry. No grossly obvious evidence of rash in areas of skin examined. No subcutaneous nodules palpated. ENT: Hearing grossly normal to normal conversation. Tongue midline on protrusion pink and slightly tacky. Eyes: No scleral icterus. Pupils equal and reactive to light at 4 mm. [place] conjunctivae. Neck is supple and nontender to gentle active range of motion and palpation. Midline trachea. No palpable thyroid nodule mass enlargement or tenderness. Lymphatic: No palpable cervical or clavicular nodes. Neck and lymphatic exams limited by patient body habitus. Psychiatric: Reasonable insight into acute and chronic medical issues. Oriented to time location and why here. Lungs: Auscultation reveals clear and equal breath sounds bilaterally. No use of accessory respiratory muscles. Cardiovascular: Heart regular rate and rhythm, without gallop murmur or rub. No carotid or abdominal aortic bruits. No ankle or pedal edema. Faintly palpable dorsalis pedis pulses. Abdomen:soft slightly distended nontender with positive bowel sounds. Unable to adequately evaluate abdomen for masses or organomegaly due to distention. Extremities: Hands and feet are warm and dry. No calf tenderness to compression. No grossly obvious visual evidence of calf swelling. Gentle manipulation of upper and lower extremities fails to reveal any obvious evidence of injury or instability to involved major joints. Neurologic: Cranial Nerves II through XII are grossly intact with the exception of possible faintly visible slight down turning of the right corner of the mouth. Light touch intact at face, upper and lower extremities. Motor function of major muscle groups upper and lower extremities 5 over 5 and symmetric with the exception of possible very subtle weakness in dorsiflexion of the right foot compared to the left. Patellar reflexes absent. Absent Babinski. No nystagmus. Past Medical History Cardiac Medical History: Reports: Myocardial Infarction, Hypertension Denies: Coronary Artery Disease Pulmonary Medical History: Reports: Asthma Denies: Chronic Obstructive Pulmonary Disease (COPD), Sleep Apnea EENT Medical History: Reports: Eyes - Glasses Denies: Ears, Throat Neurological Medical History: Reports: Ischemic CVA Denies: Hemorrhagic CVA, Seizures Endocrine Medical History: Denies: Diabetes Mellitus Type 1, Diabetes Mellitus Type 2, Hyperthyroidism, Hypothyroidism Past Surgical History Past Surgical History: Reports: None Social History Information Source: Patient, Emergency Med Personnel, [facility] Records Lives with: Family Smoking Status: Current Every Day Smoker Frequency of Alcohol Use: Social Drugs: None - Advance Directive Resuscitation Status: Full Code Surrogate healthcare decision maker:: Her friend koffi rene, who works as a nighttime sap [employer] security at our facility Family History Family History: None Parental Family History Reviewed: Yes - Father diabetic. Mother alive; uncertain health problems. Children Family History Reviewed: Yes - Healthy Sibling(s) Family History Reviewed.: Yes - Brother with coronary artery disease ; sister with a stroke Medication/Allergy Home Medications: Aspirin [Ecotrin 81 mg EC Tablet] 81 mg PO DAILY 10/01/12 Atorvastatin Calcium [Lipitor 40 mg Tablet] 40 mg PO QHS #30 tablet 04/04/17 Allergies/Adverse Reactions: No Known Allergies Allergy (Verified 01/18/17 08:41) Physical Exam Vital Signs: Temp Pulse Resp BP Pulse Ox 97.9 F 80 16 111/59 L 96 04/02/17 23:43 04/03/17 02:00 04/02/17 23:43 04/02/17 23:43 04/02/17 23:43 Intake & Output 04/02/17 04/03/17 04/04/17 00:59 00:59 00:59 Weight 66.5 kg Results Impressions: Chest X-Ray 04/02/17 20:12 IMPRESSION: NO ACUTE RADIOGRAPHIC FINDING IN THE CHEST. Head CT 04/02/17 20:12 IMPRESSION: MILD CHRONIC CHANGES OF ATROPHY AND MICROVASCULAR ISCHEMIA. NO ACUTE PROCESS. Assessment & Plan - Diagnosis (1) Acute focal neurological deficit Is this a current diagnosis for this admission?: YesPlan: Patient will be placed in observation bed admitted under CVA/TIA protocol. Multiple imaging procedures, intracranial, vascular, and cardiac. lipid panel. Permissive hypertension. Patient is a full code. I have strongly urged patient not to get out of bed without calling nursing staff, to avoid a fall with injury. Knee high SCDs for DVT prophylaxis, along with subcutaneous Lovenox. Impression and plans were discussed with patient, who concurs. Time spent in evaluation and management of patient: 73 minutes (2) Right-sided chest pain Is this a current diagnosis for this admission?: YesPlan: Serial troponins. (3) Expressive dysphasia Is this a current diagnosis for this admission?: Yes (4) Hemiparesis, right Is this a current diagnosis for this admission?: Yes (5) History of CVA in adulthood Is this a current diagnosis for this admission?: Yes (6) CAD (coronary artery disease) Qualifiers: Coronary Disease-Associated Artery/Lesion type: [place] artery [place] vs. transplanted heart: [place] heart Associated angina: without angina Qualified Code(s): I25.10 - Atherosclerotic heart disease of [place] coronary artery without angina pectoris Is this a current diagnosis for this admission?: Yes (7) Tobacco dependency Is this a current diagnosis for this admission?: Yes
[2017-04-03 03:53] LABS: ANION GAP 8 (5-19); BLOOD UREA NITROGEN 13 mg/dL (7-20); CALCIUM 8.9 mg/dL (8.4-10.2); CARBON DIOXIDE 21 mmol/L (22-30); CHLORIDE 110 mmol/L (98-107); CREATININE RESULT 0.85 mg/dL (0.52-1.25); Direct HDL 56 mg/dL (>40); GLUCOSE 99 mg/dL (75-110); POTASSIUM 4.4 mmol/L (3.6-5.0); SODIUM 138.8 mmol/L (137-145); TRIGLYCERIDES 53 mg/dL (<150)
[2017-04-03 04:04] LABS: DIRECT LDL 110 mg/dL (<100)
[2017-04-03] MEDS: ACETAMINOPHEN 325 MG TABLET PO PRN ×2 (04:59→21:36)
[2017-04-03] MEDS: ASPIRIN 325 MG TABLET, ENT COATED PO SCH (10:21)
[2017-04-03] MEDS: ENOXAPARIN SODIUM INJ 40 MG/0.4 ML DISP.SYRIN SUBCUT SCH (10:22)
[2017-04-03] MEDS: DOCUSATE SODIUM 100 MG CAPSULE PO SCH ×2 (10:23→17:53)
--- NOTE | 2017-04-03 10:27 | RADIOLOGY REPORT (SQ) ---
EXAM DESCRIPTION: MRI HEAD WITHOUT; MRA HEAD WITHOUT COMPLETED DATE/TIME: 04/03/2017 9:27 am REASON FOR STUDY: tia vs cva; hx cva COMPARISON: CT brain 09/03/2014, 04/02/2017 TECHNIQUE: Multiplanar imaging includes non-contrasted T1, T2, FLAIR, and diffusion with ADC map seq uences. Images stored on PACS. MRA exam [place] was performed with 3D [id number]-pd-[id number] technique. Images were reviewed with maximum intensity projected images as well are source data. LIMITATIONS: None. FINDINGS: ANATOMY: No developmental anomalies. Normal vascular flow voids. Pituitary fossa normal. CSF SPACES: Mild prominence of the ventricles and sulci. CEREBRUM: Sulci and gyri normal in size and contour. Few punctate foci of increased white matter sig nal on FLAIR imaging in the deep periventricular white matter, mild hazy increased FLAIR/ T2 signal i n the biparietal deep periventricular white matter, likely minimal small vessel disease. No evidence of hemorrhage, mass, or extraaxial fluid collection. POSTERIOR FOSSA: No signal alteration. No hemorrhage. No edema, masses or mass effect. Internal margarette tory canals, cerebello-pontine angles, mastoids normal. DIFFUSION IMAGING: Negative for acute or sub-acute infarction. ORBITS: No masses. Globes normal. PARANASAL SINUSES: No fluid levels. Mucosa normal. [place] MRA: No [place] stenosis, vascular malformation, or aneurysm. IMPRESSION: No MRI evidence of acute ischemic change Mild biparietal white matter disease, mild prominence of the ventricles and sulci Unremarkable [place] MRA exam. EVIDENCE OF ACUTE STROKE: NO. TECHNICAL DOCUMENTATION: JOB ID: [id number]- All Rights Reserved
--- NOTE | 2017-04-03 10:27 | RADIOLOGY REPORT (SQ) ---
EXAM DESCRIPTION: MRI HEAD WITHOUT; MRA HEAD WITHOUT COMPLETED DATE/TIME: 04/03/2017 9:27 am REASON FOR STUDY: tia vs cva; hx cva COMPARISON: CT brain 09/03/2014, 04/02/2017 TECHNIQUE: Multiplanar imaging includes non-contrasted T1, T2, FLAIR, and diffusion with ADC map seq uences. Images stored on PACS. MRA exam [place] was performed with 3D [id number]-cp-hktvse technique. Images were reviewed with maximum intensity projected images as well are source data. LIMITATIONS: None. FINDINGS: ANATOMY: No developmental anomalies. Normal vascular flow voids. Pituitary fossa normal. CSF SPACES: Mild prominence of the ventricles and sulci. CEREBRUM: Sulci and gyri normal in size and contour. Few punctate foci of increased white matter sig nal on FLAIR imaging in the deep periventricular white matter, mild hazy increased FLAIR/ T2 signal i n the biparietal deep periventricular white matter, likely minimal small vessel disease. No evidence of hemorrhage, mass, or extraaxial fluid collection. POSTERIOR FOSSA: No signal alteration. No hemorrhage. No edema, masses or mass effect. Internal [place] tory canals, cerebello-pontine angles, mastoids normal. DIFFUSION IMAGING: Negative for acute or sub-acute infarction. ORBITS: No masses. Globes normal. PARANASAL SINUSES: No fluid levels. Mucosa normal. [place] MRA: No [place] stenosis, vascular malformation, or aneurysm. IMPRESSION: No MRI evidence of acute ischemic change Mild biparietal white matter disease, mild prominence of the ventricles and sulci Unremarkable [place] MRA exam. EVIDENCE OF ACUTE STROKE: NO. TECHNICAL DOCUMENTATION: JOB ID: [id number]- All Rights Reserved
--- NOTE | 2017-04-03 10:48 | EKG REPORT ---
SEVERITY:- BORDERLINE ECG - SINUS RHYTHM BORDERLINE T ABNORMALITIES, ANT-LAT LEADS : Confirmed by: Aki Jackson 03-Apr-2017 10:48:03
--- NOTE | 2017-04-03 13:32 | PROGRESS NOTE E ---
Progress Note NAME: ALETHEA GARRETT : 1980 AGE: 36Y DATE: 04/03/2017 ROOM: 331 SUBJECTIVE: The patient is currently sitting in bed. She states that she does feel better today. Still feels a little weak though. She denies any nausea, vomiting, diarrhea. No shortness of breath, dizziness, chest pain. No fevers, chills. Patient has been afebrile. Blood pressure has been in a good range. Patient does not voice any other concerns at this time. REVIEW OF SYSTEMS: Rest of review of systems negative. MEDICATIONS: Medications have been reviewed. OBJECTIVE: GENERAL: The patient is a 36-year-old female who is awake, alert, and oriented to person, place, time, and situation. She is verbal, conversational, ambulatory. Does not appear to be in any acute distress. VITAL SIGNS FOLLOWS: Temperature is 98.2, pulse 60, respirations 16, blood pressure 105/67, oxygen saturation 97% on room air. SKIN: Warm and dry. No rash. She is not diaphoretic. HEENT: Pupils equal, round, and reactive to light and accommodation. Conjunctivae pink. No JVP. HEART: Regular. There is no murmur or rub. CHEST: Clear, symmetrical, unlabored. ABDOMEN: Soft, nontender, nondistended. BACK: No CVA tenderness or sacral edema. EXTREMITIES: No clubbing, cyanosis, edema. PSYCHIATRIC: Appropriate affect, pleasant mood. NEUROLOGIC: The patient does have some right-sided weakness and some expressive aphasia, uncertain of how close this is to her baseline. DIAGNOSTICS: Lab values are as follows: Hematology obtained on 04/02/2017: WBCs are 11.5, hemoglobin is 15.0, hematocrit is 44.9, platelet count is 359,000. Coagulants obtained on 04/02/2017: PT is 12.8, INR is 0.90. Chemistry obtained on 04/03/2017: Sodium is 138, potassium 4.4, chloride is 110, carbon dioxide 21, BUN 13, creatinine is 0.85, glucose 99, calcium is 8.9. Triglycerides are 153, cholesterol is 175, LDL 110, HDL 56. IMPRESSION AND PLAN: 1. TRANSIENT ISCHEMIC ATTACK. Will continue aspirin and statin therapy. Currently awaiting echocardiogram and carotid Doppler. I did discuss the patient's MRI results, which found no evidence of acute disease. Currently awaiting therapy input as well. 2. KNOWN CEREBROVASCULAR DISEASE. I have expressed the importance of compliance with statin therapy and the importance of glycemic control, as well as hypertensive control and to stop smoking. 3. TOBACCO DEPENDENCY. I spent several minutes discussing smoking cessation and education. The patient declines any pharmacological intervention at this time, however, will continue p.r.n. nicotine patch. 4. CORONARY ARTERY DISEASE. Once again, I expressed the importance of aspirin therapy. DISPOSITION: The patient is a FULL CODE. Pending patient's symptomatology and diagnostic findings, will reevaluate in the a.m. Time spent on this followup including assessment, plan, physical examination, patient education is 35 minutes. DICTATING PHYSICIAN: RAJINDER PARR NP [id number] PHY#: [id number] ID: [id number] JOB#: [id number] ACCT: [id number] cc: >
[2017-04-03] MEDS ORDERED: KETOROLAC TROMETHAMINE INJ/PF 30 MG/1 ML SDV IV ONE (14:00)
--- NOTE | 2017-04-03 16:11 | RADIOLOGY REPORT (SQ) ---
EXAM DESCRIPTION: CAROTID DOPPLER COMPLETED DATE/TIME: 04/03/2017 3:52 pm REASON FOR STUDY: tia vs cva; hx cva COMPARISON: None. TECHNIQUE: Grayscale ultrasound, Doppler velocity and spectra, and color Doppler images acquired of the extra-cranial carotid and vertebral arteries. Images stored on PACS. LIMITATIONS: None. FINDINGS: RIGHT CAROTID CCA Velocities: Within normal limits. ICA Velocities Peak systolic 0.89 m/s. End diastolic 0.43 m/s. Proximal ICA/CCA peak systolic ratio 0.9. Spectra normal. No significant plaque. LEFT CAROTID CCA Velocities: Within normal limits. ICA Velocities Peak systolic 0.84 m/s. End diastolic 0.43 m/s. Proximal ICA/CCA peak systolic ratio 0.8. Spectra normal. No significant plaque. VERTEBRAL ARTERIES: Antegrade flow. Normal waveforms. SUBCLAVIAN ARTERIES: No finding. OTHER: No other significant finding. IMPRESSION: NO HEMODYNAMICALLY SIGNIFICANT STENOSIS. COMMENT: Quality ID #[id number]: Velocity criteria are extrapolated from the diameter data as defined by t he Society of Radiologists in Ultrasound Consensus Conference. Radiology 2003: 229; 340-346. TECHNICAL DOCUMENTATION: JOB ID: [id number]- All Rights Reserved
--- NOTE | 2017-04-03 18:22 | XCELERA REPORT ---
[address] [address] Transthoracic Echocardiogram Report Name: ALETHEA GARRETT Age: 36 yrs Gender: Female : 1980 Patient Status: Inpatient Patient Location: 3S\S\331\S\A Study Date: 04/03/2017 01:44 PM Height: 69 in Weight: 146 lb BSA: 1.8 m2 Procedure: A two-dimensional transthoracic echocardiogram with color flow and Doppler was performed. The study was technically difficult with many images being suboptimal in quality. Reason For Study: TIA / CVA History: TIA / CVA. Ordering Physician: ISIDRO MCWILLIAMS Performed By: Alina Friedman Interpretation Summary There is no obvious cardiac source of embolus noted on this transthoracic echocardiogram. Follow-up with a DAVID is suggested if cardiac source is still suspected. The left ventricle is normal in size. There is normal left ventricular wall thickness. LV EF is 65% Left ventricular systolic function is normal. Doppler measurements suggest normal left ventricular diastolic function The left ventricular wall motion is normal. There is no thrombus. The left atrial size is normal. The interatrial septum is intact with no evidence for an atrial septal defect. There is no evidence of mitral valve prolapse. There is no mitral valve stenosis. There is a trace amount of mitral regurgitation There is no aortic valve stenosis There is no LVOT obstruction. No aortic regurgitation is present. There is no tricuspid stenosis. There is a trace amount of tricuspid regurgitation RVSP cannot be assessed due to insufficient TR jet. There is no pericardial effusion. There is no obvious cardiac source of embolus noted on this transthoracic echocardiogram. Follow-up with a DAVID is suggested if cardiac source is still suspected MMode/2D Measurements \T\ Calculations RVDd: 2.3 cm LVIDd: 4.6 cm FS: 37.6 % Ao root diam: 2.2 cm IVSd: 0.60 cm LVIDs: 2.9 cm EDV(Teich): 99.0 ml LVPWd: 0.61 cmESV(Teich): 32.0 ml Ao root area: 3.7 cm2 EF(Teich): 67.7 % LA dimension: 3.1 cm LVOT diam: 2.0 cm LVOT area: 3.0 cm2 Doppler Measurements \T\ Calculations MV E max eliza: MV P1/2t max eliza: Ao V2 max: LV V1 max P.5 cm/sec 81.4 cm/sec 130.3 cm/sec 3.1 mmHg MV A max eliza: MV P1/2t: 79.4 msec Ao max PG: LV V1 max: 44.9 cm/sec MVA(P1/2t): 2.8 cm2 6.8 mmHg 87.4 cm/sec MV E/A: 1.8 MV dec slope: HOWARD(V,D): 2.0 cm2 300.4 cm/sec2 PA V2 max: 79.0 cm/sec PA max P.5 mmHg Left Ventricle The left ventricle is normal in size. There is normal left ventricular wall thickness. LV EF is 65%. Left ventricular systolic function is normal. Doppler measurements suggest normal left ventricular diastolic function. The left ventricular wall motion is normal. There is no thrombus. There is no ventricular septal defect visualized. Right Ventricle The right ventricle is normal in size and function. Atria The right atrium is normal. The left atrial size is normal. The interatrial septum is intact with no evidence for an atrial septal defect. Mitral Valve There is no evidence of mitral valve prolapse. There is no vegetation seen on the mitral valve. There is no mitral valve stenosis. There is a trace amount of mitral regurgitation. Aortic Valve There is no aortic valvular vegetation. There is no aortic valve stenosis. There is no LVOT obstruction. No aortic regurgitation is present. Tricuspid Valve There is no tricuspid stenosis. There is a trace amount of tricuspid regurgitation. RVSP cannot be assessed due to insufficient TR jet. Pulmonic Valve There is no pulmonic valvular stenosis. There is no pulmonic valvular regurgitation. Great Vessels The aortic root is normal size. Effusions There is no pericardial effusion. : ISIDRO MCWILLIAMS > Justyna Blair
[2017-04-03] MEDS ORDERED: ATORVASTATIN CALCIUM 40 MG TABLET PO SCH (22:00)
[2017-04-04 09:28] VITALS: BP 111/59
[2017-04-04] MEDS: ENOXAPARIN SODIUM INJ 40 MG/0.4 ML DISP.SYRIN SUBCUT SCH (10:01)
[2017-04-04] MEDS: DOCUSATE SODIUM 100 MG CAPSULE PO SCH (10:01)
[2017-04-04] MEDS: ASPIRIN 325 MG TABLET, ENT COATED PO SCH (10:03)
[2017-04-04] MEDS: ACETAMINOPHEN 325 MG TABLET PO PRN (10:03)
--- NOTE | 2017-04-04 14:12 | DISCHARGE SUMMARY E ---
Discharge Summary NAME: ALETHEA GARRETT : 1980 AGE: 36Y ADMITTED: 04/03/2017 DISCHARGED: 04/04/2017 CODE STATUS: FULL CODE. PRIMARY CARE PROVIDER: None established, therefore, she will be referred to the primary care provider who was denier control operator the day the patient was admitted. DISCHARGE DIAGNOSES: Includes: 1. Transient ischemic attack. 2. Known cerebrovascular disease. 3. Tobacco dependency. 4. Coronary artery disease. DISCHARGE MEDICATIONS: Include: 1. Aspirin 81 mg p.o. daily. 2. Lipitor 40 mg p.o. q. hour of sleep. DIET: Heart healthy, as tolerated. ACTIVITY: As tolerated. DIAGNOSTICS: Lab values are as follows: Hematology obtained on 04/02/2017: WBCs are 9.5, hemoglobin is 15.0, hematocrit is 44.9, platelet count is 359,000. Coagulation obtained on 04/02/2017: PT is 12.8, INR is 0.90. Chemistry obtained on 04/03/2017: Sodium is 138, potassium is 4.4, chloride is 110, carbon dioxide 21, BUN 13, creatinine is 0.85, glucose 99, calcium is 8.9, bilirubin is 0.4. AST 17, ALT is 20, Alk phos 82, CK is 78, CK-MB is 0.62. Troponin is 0.012. Total protein is , albumin 3.9. Triglycerides are 52, cholesterol is 175. LDL is 110, VLDL is 11, HDL is 56. Serum HCG level is negative. Chest x-ray obtained on 04/02/2017 reveals no acute radiographic findings of the chest. Head CT obtained on 04/02/2017 reveals mild chronic changes of atrophy and microvascular ischemia, no acute process. Head MRI obtained on 04/03/2017 reveals no MRI evidence of acute ischemic change, mild biparietal white matter disease, mild prominence of the ventricles and sulcus, unremarkable [place]. Brain MRI with MRA obtained on 04/03/2017 reveals as per above. Carotid Doppler obtained on 04/03/2017 reveals no hemodynamically significant stenosis. EKG obtained on 04/02/2017 reveals sinus rhythm. Echocardiogram obtained on 04/03/2017 reveals a left ventricular ejection fraction of 65% with trace amount of tricuspid regurgitation. HISTORY OF PRESENT ILLNESS: The patient is a 36-year-old female with a past medical history of cerebrovascular accident and concomitant myocardial infarction. The patient presented to the emergency department with stroke-like symptoms and right-sided chest pain. The patient was noted to have mild expressive aphasia and in turn some slight residual difficulty expressing due to her prior stroke. The history, at times, was difficult to obtain. The patient has a very mild residual prominent right-sided episode of weakness and occasional paresthesias since her 2 prior strokes. Approximately an hour prior to presentation to the emergency department, the patient had progressive weakness and paresthesias increase fairly significantly along with mild headache and right-sided chest discomfort. Symptoms improved significantly in the emergency department, and the patient was not felt to be a TPA candidate. The patient stated that she had mild residual numbness and heaviness in the right upper chest as well as with mild right-sided chest pain and discomfort. Given these findings, the patient referred to the hospitalist for admission and management. HOSPITAL COURSE: The patient was observed in continuous telemetry unit. The patient underwent carotid Doppler, echocardiogram, and MRI, and findings were not suggestive of an acute CVA or etiology. Given the patient's cerebrovascular disease, the patient does appear to have a TIA. The patient had complete symptom resolution. The patient was started on statin therapy and aspirin therapy was continued. The patient was counseled about lifestyle modification as well as compliance with medication and the patient did appear to be receptive to this. The patient will be established with a primary care provider. DISCHARGE PLANNING: The patient was advised to follow up with primary care provider within 1-2 weeks for hospital followup. Time spent on this discharge including assessment, plan, physical examination, patient education is 25 minutes. DICTATING PHYSICIAN: RAJINDER PARR NP [id number] PHY#: [id number] ID: [id number] JOB#: [id number] ACCT: [id number] cc:ISIDRO MCWILLIAMS M.D. RAJINDER PARR NP > MTDD
== END 2017-04-04 12:26 | disposition home or self-care (01) ==
LOC: ER 19:29 → EH 22:05 → UNDOADMIN 22:05 → EH 23:36 → 3S 23:36 → EH 04-03 03:14 → INTOOBSV 04-03 03:14
PROVIDERS: ADMIT Family Medicine; ATTEND Family Medicine
DX: G45.9 Transient cerebral ischemic attack, unspecified (principal); I69.320 Aphasia following cerebral infarction; I69.351 Hemiplegia and hemiparesis following cerebral infarction affecting right dominant side; I69.398 Other sequelae of cerebral infarction; R20.2 Paresthesia of skin; H53.8 Other visual disturbances; F17.210 Nicotine dependence, cigarettes, uncomplicated; I25.10 Atherosclerotic heart disease of native coronary artery without angina pectoris; I25.2 Old myocardial infarction; R11.0 Nausea; I10 Essential (primary) hypertension; M19.90 Unspecified osteoarthritis, unspecified site; Z79.82 Long term (current) use of aspirin; Z82.3 Family history of stroke; Z82.49 Family history of ischemic heart disease and other diseases of the circulatory system; Z86.74 Personal history of sudden cardiac arrest
CPT/HCPCS: 93005; 99291; 36415 ×2; 82553; 82550; 84703; 85025; 85610; 85730; 80048; 80053; 84484 ×2; 80061; 93306; 93880; 70551; 70544; 71010; 70450; 93010; 97163; 92523; 97167; G0378 ×3; A9270 ×5; J3480; J1885; J1650; J3490; G8978; G8979; G8980; G9162; G9163; G9164; G8987; G8988; G8989